=== PATIENT | male | born 2000 | race Caucasian/White ===

== ENCOUNTER 2024-02-09 11:48 | Emergency (ER) | payer OTHER, SELFPAY ==
--- NOTE | ~2024-02-09 | XR_ITS ---
EXAMINATION: [id number] DATE: 02/09/2024 13:57 INDICATION: Left rib pain. TECHNIQUE: A frontal view of the chest and 2 views on 3 radiographs of the left ribs were obtained. COMPARISON: None. FINDINGS: There is no pneumonia, pleural effusion, or pneumothorax. The heart size is normal. IMPRESSION: 1. No rib fracture. Reviewed, dictated and finalized at location A. [facility] IMPRESSION: 1. No rib fracture.
[2024-02-09 12:00] VITALS: BP 111/66; PULSE 67; RESP 16; TEMP 36.6; O2SAT 100
--- NOTE | 2024-02-09 14:28 | ED.GENADULT ---
HPI - General Adult General Chief complaint: Upper Respiratory Infection Stated complaint: Rib Pain Source: patient Mode of arrival: ambulatory Limitations: no limitations History of Present Illness HPI narrative: Pt presents for evaluation of left-sided rib pain. He indicates he has had a cough for about 2 weeks. Went to urgent care about 5 days ago was told it a sinus infection. He was given amoxicillin. His symptoms are improving. Today he was performing [email or web address] and felt something pop in the left side of his chest when he did a twisting movement. He has experienced constant sharp pain in the left anterior ribs since that time. He indicates that the pain is severe, without numerical rating. Movement make his symptoms worse. He denies any SOB. He has not taken any pain medication to assist with his symptoms. Related Data Home Medications Medication Instructions Recorded Confirmed amoxicillin 500 mg capsule 500 mg PO BID 02/09/24 02/09/24 fluoxetine 20 mg capsule 20 mg PO DAILY 02/09/24 02/09/24 fluticasone propionate 50 1 spray intranasal HS 02/09/24 02/09/24 mcg/actuation nasal spray,suspension Allergies Allergy/AdvReac Type Severity Reaction Status Date / Time No Known Allergies Allergy Verified 02/09/24 13:27 Review of Systems Review of Systems: CONSTITUTIONAL: Denies fever, chills, or sweats. EYES: Denies visual changes, redness, or discharge. ENT: Denies rhinorrhea, congestion, sore throat, or otalgia. CARDIOVASCULAR: Denies palpitations, or edema. RESPIRATORY: Reports cough. Denies shortness of breath. GASTROINTESTINAL: Denies abdominal pain, nausea, vomiting, or diarrhea. GENITOURINARY: Denies dysuria or hematuria. SKIN: Denies rash or itching. MUSCULOSKELETAL: Reports left anterior chest wall pain. Denies back pain, joint pain, or myalgia. NEUROLOGIC: Denies headache, numbness, dizziness, or weakness. PSYCHIATRIC: Denies anxiety or depression. [facility] Past Medical History Medical History No pertinent past medical history Surgical History Surgical History No pertinent past surgical history Family History Family History Mother Family history non-contributory Social History Social History Smoking status: Never smoker Substance use: never Gender identity (if verbalized by the patient): Male Spiritual care concerns: No Exam Narrative: GENERAL: Well-appearing, well-nourished, and in no acute distress. HEAD: Normocephalic, atraumatic. EYES: PERRLA and EOMI. ENT: Nares clear, no rhinorrhea or epistaxis. Mucous membranes moist. Oropharynx without tonsillar hypertrophy exudate or other lesions. Bilateral TMs pearly garcia nonbulging NECK: Supple. No adenopathy or masses. No carotid bruits or JVD CHEST: Clear to auscultation. No respiratory distress. No wheezes rales or rhonchi. There is tenderness noted to the left anterior lower ribs. HEART: Regular rate and rhythm. No murmur heard. Normal peripheral pulses. ABDOMEN: Soft, nontender, nondistended, normal active bowel sounds. EXTREMITIES: Normal range of motion. No edema. SKIN: Warm, dry, no rash. NEURO: No focal deficits. Alert and oriented x3. PSYCH: Normal mood and affect. Course Course Emergency Course: This is a 24-year-old male who presented for evaluation of left anterior rib pain. X ray was performed and negative for rib fracture. Cough is improving on antibiotics. Continue course. Ibuprofen for pain at home. Follow up with primary provider. Go to the ER for worsening symptoms. Patient in agreement with the care Level of Care: Express Care Visit Vital Signs Vital signs: Vital Signs Temperature 36.6 C 02/09/24 12:00 Pulse Rate 67 02/09/24 12:00 Respiratory Rate 16 02/09/24 12:00 Blood Pressure 111/66 02/09/24 12:00 Pulse Oximetry 100 02/09/24 12:00 Oxygen Delivery Room Air 02/09/24 12:00 Temperature 36.6 C 02/09/24 12:00 Pulse Rate 67 02/09/24 12:00 Respiratory Rate 16 02/09/24 12:00 Blood Pressure 111/66 02/09/24 12:00 Pulse Oximetry 100 02/09/24 12:00 Oxygen Delivery Room Air 02/09/24 12:00 Medical Decision Making Vital Signs Vital Signs: Vital Signs Temperature 36.6 C 02/09/24 12:00 Pulse Rate 67 02/09/24 12:00 Respiratory Rate 16 02/09/24 12:00 Blood Pressure 111/66 02/09/24 12:00 Pulse Oximetry 100 02/09/24 12:00 Oxygen Delivery Room Air 02/09/24 12:00 Temperature 36.6 C 02/09/24 12:00 Pulse Rate 67 02/09/24 12:00 Respiratory Rate 16 02/09/24 12:00 Blood Pressure 111/66 02/09/24 12:00 Pulse Oximetry 100 02/09/24 12:00 Oxygen Delivery Room Air 02/09/24 12:00 Imaging Data Radiologist's impression: EXAMINATION: [id number] DATE: 02/09/2024 13:57 INDICATION: Left rib pain. TECHNIQUE: A frontal view of the chest and 2 views on 3 radiographs of the left ribs were obtained. COMPARISON: None. FINDINGS: There is no pneumonia, pleural effusion, or pneumothorax. The heart size is normal. IMPRESSION: 1. No rib fracture. Discharge Plan Discharge Clinical Impression: Chest wall muscle strain Patient Disposition: Home, Self-Care Condition: Stable Instructions: Antibiotic Form, Muscle Strain (ED) Patient Language: Irish Prescriptions: No Action amoxicillin 500 mg capsule 500 mg PO BID fluoxetine 20 mg capsule 20 mg PO DAILY fluticasone propionate 50 mcg/actuation spray,suspension 1 spray INTRANASAL HS Follow-up/Referrals: Jose Ruiz DO [Physician] - Time of Disposition: 14:08
== END 2024-02-09 14:10 | disposition home or self-care (01) ==
PROVIDERS: Emergency Provider Nurse Practitioner
DX: S29.011A Strain of muscle and tendon of front wall of thorax, initial encounter (principal); X58.XXXA Exposure to other specified factors, initial encounter; Y93.75 Activity, martial arts
CPT/HCPCS: 71101; 99213; G0463